=== PATIENT | female | born 1965 | race Caucasian/White ===

== ENCOUNTER → 2020-11-07 10:09 | Outpatient (CLI) | payer BC, SELFPAY ==
--- NOTE | 2020-11-07 10:12 | MRI_ITS ---
STUDY: MRI UPPER EXTREMITY RIGHT HUMERUS WITHOUT CONTRAST REASON FOR EXAM: Female, 55 years old. rt shoulder pain, work injury, pain across top of shoulder into upper arm, limited r.o.m TECHNIQUE: Standardized fat and water weighted pulse sequences were obtained in all 3 orthogonal planes. COMPARISON: None. FINDINGS: Please see dedicated shoulder MRI. Normal subcutis adipose space. No solid, cystic or lipomatous lesions. Normal visualized muscles and fascia. Normal visualized neurovascular bundles. Normal humerus. MRI/Upper Ext/No Jt/ wo IMPRESSION: Normal right humerus MRI Electronically Signed: Lorne Villa DO at 11:57 EST Tel , Service support ,
--- NOTE | 2020-11-07 10:12 | MRI_ITS ---
STUDY: MRI RIGHT SHOULDER REASON FOR EXAM: Female, 55 years old. rt shoulder pain, work injury, pain across top of shoulder into upper arm, limited r.o.m TECHNIQUE: Standardized fat and water weighted pulse sequences were obtained in all 3 orthogonal planes. COMPARISON: None. FINDINGS: Mild subscapularis tendinosis without tendon tear. Minimal supraspinatus and infraspinatus tendinosis without tendon tear. Normal teres minor tendon. No muscle atrophy. Moderate/severe intracapsular long biceps tendinosis (axial images 8 through 11 series 3). Biceps labral anchor intact. Labral degeneration with tiny anterior labral tear (axial image 12 series 3). Capsular ligaments intact. Normal rotator cuff interval. Small volume glenohumeral joint effusion. No subacromial subdeltoid bursitis. Mild glenohumeral cartilage loss. Moderate acromioclavicular joint arthrosis. Preserved anterior interval. No acute fracture, dislocation or osseous destruction. Intact coracohumeral and coracoacromial ligaments. Normal quadrilateral space. Normal axillary space. Normal deltoid muscle. Normal trapezius muscle. MRI/Upper Ext Joint Only(Routine) IMPRESSION: Mild rotator cuff tendinosis without tendon tear Moderate/severe intracapsular long biceps tendinosis Labral degeneration with tiny anterior labral tear Mild glenohumeral and moderate AC joint arthrosis Small bilateral humeral joint effusion Electronically Signed: Loren Villa DO at 11:46 EST Tel , Service support ,
== END ==
PROVIDERS: Referring Provider Orthopaedic Surgery; Visit Provider Orthopaedic Surgery
DX: M75.81 Other shoulder lesions, right shoulder (principal); M75.41 Impingement syndrome of right shoulder; M75.21 Bicipital tendinitis, right shoulder; G25.89 Other specified extrapyramidal and movement disorders
CPT/HCPCS: 73218; 73221